=== PATIENT | male | born 1995 | race Hispanic/Latino ===

== ENCOUNTER 2024-04-05 19:25 | Emergency (ER) | payer SELFPAY ==
[2024-04-05] MEDS ORDERED: Fluorescein Opthalmic Strip ONE (19:54)
[2024-04-05] MEDS ORDERED: Proparacaine 0.5% Opth 15 ML BOT ONE (19:55)
== END 2024-04-05 20:55 | disposition home or self-care (01) ==
LOC: ERS 19:25
DX: S00.31XA Abrasion of nose, initial encounter (principal); H57.11 Ocular pain, right eye
CPT/HCPCS: 99283